=== PATIENT | male | born 1975 | race Caucasian/White ===

== ENCOUNTER → 2016-10-30 | Outpatient (CLI) | payer OTHER ==
[~2016-10-30] MED LIST: ADVIN10/60 INH
[2016-11-03 18:40] LABS: MUMPS IgG VALUE 1.91; MUMPS VIRUS ANTIBODY IGM <1:20
== END | disposition home or self-care (01) ==
LOC: C.LABPVFM 09:25
PROVIDERS: ATTEND Nurse Practitioner
DX: R68.89 Other general symptoms and signs (principal); K11.8 Other diseases of salivary glands

== ENCOUNTER 2017-01-30 21:35 | Emergency (ER) | payer OTHER ==
[~2017-01-30] VITALS: Ht 182.9 cm; Wt 115.5 kg
[2017-01-30 21:34] VITALS: O2SAT 98
[2017-01-30 21:36] VITALS: TEMP 36.7; Ht 182.9 cm; Wt 115.5 kg
[2017-01-30] MEDS ORDERED: SODIUM CHLORIDE 0.9% 1000ML 1,000 ML IV STA (21:49)
[2017-01-30 21:59] LABS: BASO % 0.3 %; BASO ABS # 0.03 K/uL (0-0.2); COMPLETE YES; EOS % 5.7 %; HEMATOCRIT 49.3 % (42-52); IG% 0.4 %; LYMPH % 36.6 %; LYMPH ABS # 3.41 K/uL (1.2-3.4); MEAN CORPUSCULAR HEMOGLOBIN 30.5 pg (25-34); MEAN CORPUSCULAR HGB CONC 34.3 g/dl (32-36); MEAN PLATELET VOLUME 10.4 fL (7.4-10.4); MONO % 5.8 %; NEUT % 51.2 %; PLATELET COUNT 278 K/uL (130-400); RED BLOOD COUNT 5.54 M/uL (4.7-6.1); WHITE BLOOD COUNT 9.31 K/uL (4.8-10.8)
--- NOTE | 2017-01-30 22:05 | DIAGNOSTIC IMAGING REPORT ---
CHEST ONE VIEW PORTABLE CLINICAL HISTORY: Supraventricular tachycardia. COMPARISON STUDY: Chest radiograph July 01, 2010. FINDINGS: The appearance of the chest is unchanged. Obscuration of right heart border was shown on exam of July 01, 2010 and is due to a pectus excavatum deformity. Cardiac size is normal. There is no evidence of pulmonary edema. Several old right rib fractures are present. There is no consolidation to suggest pneumonia. IMPRESSION: 1. No acute cardiopulmonary findings. No change in appearance of the chest. 2. Pectus excavatum deformity. Electronically signed by: David Franco M.D. 01/30/2017 10:03 PM Dictated Date/Time: 01/30/2017 10:01 PM
[2017-01-30] MEDS ORDERED: ADVIN10/60 INH (22:16)
[2017-01-30 22:19] LABS: BUN/CREATININE RATIO 11.8 (10-20); CALCIUM 9.4 mg/dl (8.5-10.1); CREATININE 1.3 mg/dl (0.60-1.40); MAGNESIUM 2.2 mg/dl (1.8-2.4); POTASSIUM 3.9 mmol/L (3.5-5.1)
[2017-01-30 23:57] VITALS: BP 123/71; PULSE 81; O2SAT 98
--- NOTE | 2017-01-31 00:09 | EMERGENCY ROOM VISIT NOTE ---
History Report prepared by Amarjit: Nanci Weber Under the Supervision of: Dr. Aracelis Vidales M.D. 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 pt denies any cp with it or any cardiac hx. 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 He found that his heart rate was 220. He has never experienced this before. It lasted for around 5 minutes. He denies any chest pain. He denies any recent illness or steroid use. He denies any cocaine use. He drank less coffee today than usual. He denies any recent trips or Sudafed use. He does not use estrogen. He does not smoke. Source of History: patient Onset: VISUAL EFFECTS ARTIST Position: other (global) Quality: other (tachycardia) Timing: other (episodic) Associated Symptoms: No chest pain Review of Systems See HPI for pertinent positives & negatives. A total of 10 systems reviewed and were otherwise negative. Past Medical & Surgical Medical Problems: (1) Asthma Family History Hypertension Social History Smoking Status: Never Smoker Marital Status: Housing Status: lives with family Occupation Status: employed Current/Historical Medications Scheduled Fluticasone Prop/Salmeterol (Advair Diskus 100/50 60 Dose), 1 PUFF INH BID Allergies Coded Allergies: No Known Allergies (Unverified , 01/30/17) Physical Exam Vital Signs Date Time Temp Pulse Resp B/P (MAP) Pulse Ox O2 Delivery O2 Flow Rate FiO2 01/30/17 23:57 81 18 123/71 98 01/30/17 22:24 92 17 145/96 95 Room Air 01/30/17 21:41 101 01/30/17 21:41 95 Room Air 01/30/17 21:38 104 18 179/97 97 Room Air 01/30/17 21:36 36.7 106 20 182/123 98 Room Air 01/30/17 21:34 98 Room Air 01/30/17 21:34 98 Room Air Physical Exam Vital signs reviewed. General: Well-appearing male, in no significant distress. HEENT: No scleral icterus, PERRLA, neck supple. Atraumatic. Cardiovascular: Regular rate and rhythm, no extra sounds. Pulmonary: Clear to auscultation bilaterally, normal work of breathing. Abdomen: Soft, nontender, nondistended, positive bowel sounds. Musculoskeletal: Atraumatic, no peripheral edema. Neurologic: Patient awake alert and oriented x 3 Skin: Warm, dry, no rash Medical Decision & Procedures ER Provider Diagnostic Interpretation: X-ray results as stated below per interpretation by me and the radiologist: CHEST ONE VIEW PORTABLE CLINICAL HISTORY: Supraventricular tachycardia. COMPARISON STUDY: Chest radiograph July 01, 2010. FINDINGS: The appearance of the chest is unchanged. Obscuration of right heart border was shown on exam of July 01, 2010 and is due to a pectus excavatum deformity. Cardiac size is normal. There is no evidence of pulmonary edema. Several old right rib fractures are present. There is no consolidation to suggest pneumonia. IMPRESSION: 1. No acute cardiopulmonary findings. No change in appearance of the chest. 2. Pectus excavatum deformity. Electronically signed by: David Franco M.D. 01/30/2017 10:03 PM Dictated Date/Time: 01/30/2017 10:01 PM Laboratory Results 01/30/17 21:35 Red Blood Count 5.54, Mean Corpuscular Volume 89.0, Mean Corpuscular Hemoglobin 30.5, Mean Corpuscular Hemoglobin Concent 34.3, Mean Platelet Volume 10.4, Neutrophils (%) (Auto) 51.2, Lymphocytes (%) (Auto) 36.6, Monocytes (%) (Auto) 5.8, Eosinophils (%) (Auto) 5.7, Basophils (%) (Auto) 0.3, Neutrophils # (Auto) 4.76, Lymphocytes # (Auto) 3.41, Monocytes # (Auto) 0.54, Eosinophils # (Auto) 0.53, Basophils # (Auto) 0.03 01/30/17 21:35 Test 01/30/17 21:35 01/30/17 21:53 White Blood Count 9.31 K/uL (4.8-10.8) Red Blood Count 5.54 M/uL (4.7-6.1) Hemoglobin 16.9 g/dL (14.0-18.0) Hematocrit 49.3 % (42-52) Mean Corpuscular Volume 89.0 fL (80-100) Mean Corpuscular Hemoglobin 30.5 pg (25-34) Mean Corpuscular Hemoglobin Concent 34.3 g/dl (32-36) Platelet Count 278 K/uL (130-400) Mean Platelet Volume 10.4 fL (7.4-10.4) Neutrophils (%) (Auto) 51.2 % Lymphocytes (%) (Auto) 36.6 % Monocytes (%) (Auto) 5.8 % Eosinophils (%) (Auto) 5.7 % Basophils (%) (Auto) 0.3 % Neutrophils # (Auto) 4.76 K/uL (1.4-6.5) Lymphocytes # (Auto) 3.41 K/uL (1.2-3.4) Monocytes # (Auto) 0.54 K/uL (0.11-0.59) Eosinophils # (Auto) 0.53 K/uL (0-0.5) Basophils # (Auto) 0.03 K/uL (0-0.2) RDW Standard Deviation 42.5 fL (36.4-46.3) RDW Coefficient of Variation 12.9 % (11.5-14.5) Immature Granulocyte % (Auto) 0.4 % Immature Granulocyte # (Auto) 0.04 K/uL (0.00-0.02) Anion Gap 7.0 mmol/L (3-11) Est Creatinine Clear Calc Drug Dose 97.1 ml/min Estimated GFR () 78.0 Estimated GFR (Non- 67.3 BUN/Creatinine Ratio 11.8 (10-20) Calcium Level 9.4 mg/dl (8.5-10.1) Magnesium Level 2.2 mg/dl (1.8-2.4) Total Bilirubin 0.9 mg/dl (0.2-1) Direct Bilirubin 0.2 mg/dl (0-0.2) Aspartate Amino Transf (AST/SGOT) 31 U/L (15-37) Alanine Aminotransferase (ALT/SGPT) 47 U/L (12-78) Alkaline Phosphatase 150 U/L (45-117) Total Protein 8.2 gm/dl (6.4-8.2) Albumin 4.4 gm/dl (3.4-5.0) Bedside Troponin I < 0.030 ng/ml (0-0.045) Laboratory results per my review. Medications Administered Medications (Trade) Dose Ordered Sig/Edd Route Start Time Stop Time Status Last Admin Dose Admin Sodium Chloride 1,000 ml @ 150 mls/hr [id number] STAT IV 01/30/17 21:49 01/31/17 00:10 DC 01/30/17 22:01 150 MLS/HR ECG Indication: tachycardia Rate (beats per minute): 106 Rhythm: sinus tachycardia Findings: Q waves (Inferior), T-wave inversion (Inferior), no ectopy, other ( poor baseline quality for interpretation) ED Course 2147: Past medical records reviewed. The patient was evaluated in room A9. A complete history and physical examination was performed. 2148: NSS 1000 ml @ 150 mls/hr IV. 3: Upon reevaluation, the patient appeared to have improvement of his symptoms. I discussed findings with him. He verbalized agreement of the treatment plan. He was discharged home. Medical Decision Differential diagnosis: Etiologies such as premature contractions, electrolyte abnormality, cardiac dysrhythmia, thyroid dysfunction, pulmonary embolism, infection, gastrointestinal, as well as others were entertained. Medication Reconciliation: I attest that I have personally reviewed the patient' s current medication list. Blood Pressure Screening: Patient was found to have an elevated blood pressure and was referred to their primary doctor for recheck and further treatment. This patient was evaluated and appeared to be in no significant distress. IV access was obtained and laboratory work was drawn. The patient was placed on the senior medical technologist and found to be in a sinus tachycardia. Laboratory work reveals no significant abnormalities. He has remained in a sinus rhythm. He denies any stimulant use. He denies this ever happening in the past. The patient is feeling improved after IV hydration. He was discharged to follow-up with his PCP this week and to return to the ER for worsening of symptoms or any medical concerns. Impression Primary Impression: SVT (supraventricular tachycardia) Scribe Attestation The scribe's documentation has been prepared under my direction and personally reviewed by me in its entirety. I confirm that the note above accurately reflects all work, treatment, procedures, and medical decision making performed by me. Departure Information Dispostion Home / Self-Care Referrals Dahlia Bazan C.R.N.P (PCP) Forms HOME CARE DOCUMENTATION FORM, IMPORTANT VISIT INFORMATION, WORK / SCHOOL INSTRUCTIONS Patient Instructions My [facility], Understanding Supraventricular Tachycardia SVT Additional Instructions Diagnosis: SVT Drink plenty of fluids. Avoid stimulants such as caffiene, nicotine and energy drinks. Avoid alcohol. Follow up with your doctor this week for reevaluation. Return to the ED for worsening of symptoms or any medical concerns.
== END 2017-01-30 23:59 | disposition home or self-care (01) ==
LOC: EDBD 21:35 → C.EDA 21:36
DX: I47.1 Supraventricular tachycardia (principal); J45.909 Unspecified asthma, uncomplicated; Z82.49 Family history of ischemic heart disease and other diseases of the circulatory system

== ENCOUNTER → 2017-02-08 | Outpatient (CLI) | payer OTHER | END | disposition home or self-care (01) | LOC: C.LABPVFM 10:44 | PROVIDERS: ATTEND Nurse Practitioner | DX: I47.1 Supraventricular tachycardia (principal) ==